=== PATIENT | female | born 1995 | race Caucasian/White ===

== ENCOUNTER 2019-03-15 14:27 | Emergency (ER) | payer OTHER ==
[~2019-03-15] VITALS: Ht 157.5 cm; Wt 49.3 kg
[~2019-03-15 14:27] MED LIST: AMOX1TAB10 PO; GUAI120S25 PO
[2019-03-15 14:43] VITALS: BP 106/55; PULSE 100; RESP 16; Ht 157.5 cm; Wt 49.3 kg
== END 2019-03-15 15:09 | disposition home or self-care (01) ==
LOC: E/R 14:27
DX: R05 Cough (principal); H66.002 Acute suppurative otitis media without spontaneous rupture of ear drum, left ear
CPT/HCPCS: 99283